=== PATIENT | female | born 1950 | race Caucasian/White ===

== ENCOUNTER 2018-03-11 09:03 | Day surgery (SDC) | payer MEDICARE ==
[2018-03-11] MEDS: ATROPINE SULFATE 1% OP SOLN 2 ML BTL As Ordered (08:33)
[~2018-03-11 09:03] MED LIST: PHENYLEPHRINE 2.5% OPHTH SOL 2ML OS; TROPICAMIDE 1% OPHTH SOLN 2ML OS
[2018-03-11] MEDS: BALANCED SALT IRRIGATION SOLUTION 500ML BAG (FOR OR EYE MACHINE) As Ordered (09:14)
[2018-03-11 09:56] LABS: BEDSIDE GLUCOSE 203 MG/DL (80-115)
[2018-03-11] MEDS: OFLOXACIN 0.3 % (OCUFLOX) OPTH SOL 5ML OS (10:03)
[2018-03-11] MEDS: PROPARACAINE 0.5% OPHTH SOL 15ML OS (10:04)
[2018-03-11] MEDS ORDERED: MIDAZOLAM INJ 2 MG/2 ML VIAL (J2250) As Ordered (11:11)
[2018-03-11] MEDS ORDERED: fentaNYL 100 MCG/2 ML INJECTION (J3010) As Ordered (11:11)
[2018-03-11] MEDS: TETRACAINE 0.5% OPHTH SOLN 4ML As Ordered (11:36)
[2018-03-11] MEDS: POVIDONE-IODINE 5% OPHTH PREP SOL 30ML As Ordered (11:38)
[2018-03-11] MEDS: EDTA XX (11:45)
[2018-03-11] MEDS: OFLOXACIN 0.3 % (OCUFLOX) OPTH SOL 5ML As Ordered (11:45)
[2018-03-11] MEDS: ACETYLCHOLINE OPHTH SOLN 1% 2ML (MIOCHOL-E) As Ordered (11:47)
[2018-03-11] MEDS: DUOVISC (0.50ML VISCOAT/0.55ML PROVISC) OPHTH KIT As Ordered (11:47)
[2018-03-11] MEDS: CEFUROXIME 1MG/0.1ML INTRACAMERAL INJ As Ordered (11:48)
[2018-03-11] MEDS: LIDOCAINE 0.75%/EPINEPHRINE 0.025% IN BSS 1ML SYR INTRACAMERAL (OR ONLY) As Ordered (11:48)
== END 2018-03-11 12:27 | disposition home or self-care (01) ==
LOC: M SDC 09:03
DX: H18.51 Endothelial corneal dystrophy (principal); H18.422 Band keratopathy, left eye; I10 Essential (primary) hypertension; E10.9 Type 1 diabetes mellitus without complications; Z79.4 Long term (current) use of insulin; E78.5 Hyperlipidemia, unspecified; I25.10 Atherosclerotic heart disease of native coronary artery without angina pectoris; K21.9 Gastro-esophageal reflux disease without esophagitis; Z88.0 Allergy status to penicillin; Z79.82 Long term (current) use of aspirin; Z85.51 Personal history of malignant neoplasm of bladder; Z92.23 Personal history of estrogen therapy
CPT/HCPCS: 65400

== ENCOUNTER 2018-04-22 08:52 | Day surgery (SDC) | payer MEDICARE ==
[~2018-04-22 08:52] MED LIST changes: +OFLOXACIN 0.3 % (OCUFLOX) OPTH SOL 5ML OD; +PHENYLEPHRINE 2.5% OPHTH SOL 2ML OD; -PHENYLEPHRINE 2.5% OPHTH SOL 2ML OS; +PROPARACAINE 0.5% OPHTH SOL 15ML OD; +TROPICAMIDE 1% OPHTH SOLN 2ML OD; -TROPICAMIDE 1% OPHTH SOLN 2ML OS
[2018-04-22 10:15] LABS: BEDSIDE GLUCOSE 160 MG/DL (80-115)
[2018-04-22] MEDS ORDERED: fentaNYL 100 MCG/2 ML INJECTION (J3010) As Ordered (10:26)
[2018-04-22] MEDS ORDERED: MIDAZOLAM INJ 2 MG/2 ML VIAL (J2250) As Ordered (10:26)
[2018-04-22] MEDS ORDERED: LIDOCAINE 2% INJ 100 MG/5 ML SDV (FOR ANES.) As Ordered (10:28)
[2018-04-22] MEDS: PROPARACAINE 0.5% OPHTH SOL 15ML OD (10:59)
[2018-04-22] MEDS: NON-FORMULARY COMPOUNDED MEDICATION XX (10:59)
== END 2018-04-22 11:48 | disposition home or self-care (01) ==
LOC: M SDC 08:52
DX: H18.40 Unspecified corneal degeneration (principal); E10.9 Type 1 diabetes mellitus without complications; I25.10 Atherosclerotic heart disease of native coronary artery without angina pectoris; I25.2 Old myocardial infarction; I10 Essential (primary) hypertension; E78.00 Pure hypercholesterolemia, unspecified; K21.9 Gastro-esophageal reflux disease without esophagitis; Z88.1 Allergy status to other antibiotic agents; Z79.899 Other long term (current) drug therapy; Z79.4 Long term (current) use of insulin; Z79.82 Long term (current) use of aspirin; Z92.21 Personal history of antineoplastic chemotherapy; Z87.820 Personal history of traumatic brain injury; Z78.0 Asymptomatic menopausal state; Z85.51 Personal history of malignant neoplasm of bladder
CPT/HCPCS: 65436

== ENCOUNTER 2018-06-03 08:33 | Day surgery (SDC) | payer MEDICARE ==
[2018-06-03 09:22] LABS: BEDSIDE GLUCOSE 234 MG/DL (80-115)
[2018-06-03] MEDS: TROPICAMIDE 1% OPHTH SOLN 2ML OD (09:23)
[2018-06-03] MEDS: OFLOXACIN 0.3 % (OCUFLOX) OPTH SOL 5ML OD (09:23)
[2018-06-03] MEDS: PHENYLEPHRINE 2.5% OPHTH SOL 2ML OD (09:23)
[2018-06-03] MEDS: PROPARACAINE 0.5% OPHTH SOL 15ML OD (09:23)
[2018-06-03] MEDS ORDERED: MIDAZOLAM INJ 2 MG/2 ML VIAL (J2250) As Ordered (09:36)
[2018-06-03] MEDS ORDERED: ONDANSETRON 4MG/2ML VIAL (J2405) As Ordered (09:36)
[2018-06-03] MEDS ORDERED: fentaNYL 100 MCG/2 ML INJECTION (J3010) As Ordered (09:36)
[2018-06-03] MEDS: BALANCED SALT IRRIGATION SOLUTION 500ML BAG (FOR OR EYE MACHINE) As Ordered (10:51)
[2018-06-03] MEDS: DUOVISC (0.50ML VISCOAT/0.55ML PROVISC) OPHTH KIT As Ordered (10:51)
[2018-06-03] MEDS: POVIDONE-IODINE 5% OPHTH PREP SOL 30ML As Ordered (10:51)
[2018-06-03] MEDS: LIDOCAINE 0.75%/EPINEPHRINE 0.025% IN BSS 1ML SYR INTRACAMERAL (OR ONLY) As Ordered (10:52)
== END 2018-06-03 12:00 | disposition home or self-care (01) ==
LOC: M SDC 08:33
DX: H25.11 Age-related nuclear cataract, right eye (principal); I25.10 Atherosclerotic heart disease of native coronary artery without angina pectoris; Z98.61 Coronary angioplasty status; I25.2 Old myocardial infarction; I10 Essential (primary) hypertension; E78.5 Hyperlipidemia, unspecified; E11.9 Type 2 diabetes mellitus without complications; Z79.4 Long term (current) use of insulin; Z79.899 Other long term (current) drug therapy; Z88.0 Allergy status to penicillin; Z79.82 Long term (current) use of aspirin
CPT/HCPCS: 66984